=== PATIENT | female | born 1990 | race Caucasian/White ===

== ENCOUNTER 2018-05-30 04:18 | Emergency (ER) | payer OTHER, SELFPAY ==
[2018-05-30 04:23] VITALS: BP 116/69; PULSE 82; RESP 17; TEMP 37; O2SAT 100
[2018-05-30 04:31] VITALS: BP 116/69; PULSE 82; RESP 17; TEMP 37; O2SAT 100; BMI 27.3
--- NOTE | 2018-05-30 05:41 | ED_ITS ---
HPI - Pediatric GI General Chief Complaint: Abdominal Pain Stated Complaint: Constipation/Hard Stools Time Seen by Provider: 05/30/18 05:27 Source: patient Mode of arrival: ambulatory Limitations: no limitations History of Present Illness HPI narrative: The patient describes constipation for 4+ days. She normally has a bowel movement daily. She is having rectal pain and pressure when she tries to go. She has also had a little bit of bleeding when she tries to have a bowel movement. She has lower abdominal pain in conjunction with the rectal pain when trying to defecate. She is able to eat. There has been no nausea or vomiting. She denies dysuria. She is on control pills and is not . She has no fever. Related Data Allergies Allergy/AdvReac Type Severity Reaction Status Date / Time amoxicillin Allergy Hives Verified 05/30/18 04:38 Pediatric Review of Systems All systems ED: reviewed and negative except as stated Constitutional: Denies fever and chills Cardiovascular: Denies chest pain Respiratory: Denies cough and dyspnea Gastrointestinal: Reports abdominal pain, constipation and other (Bright red blood per rectum); Denies nausea and vomiting Genitourinary: Denies dysuria and vaginal bleeding Musculoskeletal: Denies back pain Integumentary: Denies rash PFSH Medical History No significant medical problems (Acute) No significant past surgical history (Acute) Social History Smoking Status: Never smoker Pediatric Exam Initial Vital Signs Initial Vital Signs: Vital Signs Temperature 98.6 F 05/30/18 04:23 Pulse Rate 82 05/30/18 04:23 Respiratory Rate 17 05/30/18 04:23 Blood Pressure 116/69 05/30/18 04:23 Pulse Oximetry 100 05/30/18 04:23 General Limitations: no limitations General appearance: well-appearing, well-hydrated and well-nourished Chest Chest inspection: Present normal inspection and symmetric chest wall rise Respiratory Respiratory exam: Present normal lung sounds bilaterally Cardiovascular Cardiovascular exam: Present regular rate, normal rhythm, normal heart sounds, + S1 and +S2; Absent rubs, gallop and clicks Abdominal Exam Abdominal exam: Present soft and normal bowel sounds; Absent distention, tenderness, guarding and mass Rectal Exam Rectal exam: Present normal rectal tone and tenderness (She has a small anal fissure. She has a moderate amount of stool in rectum, she is not impacted.); Absent hemorrhoids Course Course Narrative: The patient had little result with the Fleet's enema. She is feeling reasonably well. She will be discharged with magnesium citrate. Orders Ordered: Discontinued Medications Magnesium Citrate (Magnesium Citrate) 300 ml PO NOW ONE Stop: 05/30/18 07:00 Last Admin: 05/30/18 07:11 Dose: 300 ml Non-Formulary Medication (Fleets) 1 applicator [place] NOW ONE Stop: 05/30/18 05:38 Last Admin: 05/30/18 05:45 Dose: 1 applicator Vital Signs - 8 hr 05/30/18 04:23 05/30/18 04:31 05/30/18 06:48 Temperature 98.6 F 98.6 F Pulse Rate 82 82 84 Respiratory Rate 17 17 12 Blood Pressure 116/69 Blood Pressure [Left Arm] 116/69 102/71 Pulse Oximetry 100 100 100 Discharge Plan Departure Patient Disposition: Home Clinical Impression: Constipation Activity Restrictions/Additional Instructions: Drink the magnesium citrate after returning home. Walk as we discussed to help the magnesium citrate move through your system. You may drink water with a magnesium citrate. For future reference, try Milk of Magnesia 2 tablespoons every 4 hours as needed. Return to the ER as needed. Stand Alone Forms: Work Release Note
[2018-05-30] MEDS: [UNRECOGNIZED DRUG - OTHER] 1 EACH PR (05:45)
--- NOTE | 2018-05-30 05:51 | PC.NURSE ---
Stand by assist for Dr Rowell during rectal exam. Pt tolerated well. Fleets enema given via arevalo tube, pt instructed to hold it as long as she can before going to bathroom. Call light given. Pt tolerated well. Will ananth for effect.
[2018-05-30 06:48] VITALS: BP 102/71; PULSE 84; RESP 12; O2SAT 100
[2018-05-30] MEDS: MAGNESIUM CITRATE 300 ML SOLUTION PO (07:11)
== END 2018-05-30 07:18 | disposition home or self-care (01) ==
PROVIDERS: Emergency Provider Emergency Medicine
DX: K59.00 Constipation, unspecified (principal)
CPT/HCPCS: 99283

== ENCOUNTER 2019-10-13 20:36 | Emergency (ER) | payer OTHER, SELFPAY ==
--- NOTE | 2019-10-13 20:41 | ED.GENADULT ---
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 She states that the symptoms started approximately 2 days ago. They worsen since then. She states that she has a rash both on the inside and the outside of her labia. She has never had a rash like this in the past. The rash is tender to touch. It is not itching. It does hurt worse when she urinates. She does not feel that it gray when she urinates but that it does the rash that causes her problems. No bowel changes. No vomiting. No other rashes anywhere else on her body. She did try some [id number] yeast treatments for her symptoms prior to arrival without any improvement. She has 1 sexual partner. 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 Does have a prior history of gonorrhea but this was many years ago and was treated for it. Has never been before. Related Data Previous Rx's Medication Instructions Recorded acyclovir 400 mg PO TID 10 Days #30 tab 10/13/19 lidocaine HCl 1 applictn TOP BID-QID PRN #30 ml 10/13/19 Allergies Allergy/AdvReac Type Severity Reaction Status Date / Time amoxicillin Allergy Hives Verified 05/30/18 04:38 Review of Systems Constitutional Constitutional: Denies fever(s) Cardiovascular Cardiovascular: Denies chest pain and Denies dyspnea Respiratory Respiratory: Denies dyspnea Gastrointestinal Gastrointestinal: Denies abdominal pain, Denies nausea and Denies vomiting Genitourinary Genitourinary: Reports dysuria, Reports pelvic pain and Reports vaginal discharge Musculoskeletal Musculoskeletal: Denies myalgias and Denies arthralgias Integumentary/Breasts Skin/Breast: Reports rash Neurologic Neurologic: Denies behavioral changes Psychiatric Psychiatric: Denies behavioral changes Hematologic/Lymphatic Hematologic/Lymphatic: Denies easy bleeding and Denies easy bruising Patient History Medical History No significant medical problems (Acute) Social History Smoking Status: Never smoker Smoking Status: Never smoker alcohol intake frequency: a few times a month Substance Use Type: does not use Exam Initial Vital Signs Initial Vital Signs: Vital Signs Temperature 98.7 F 10/13/19 20:48 Pulse Rate 78 10/13/19 20:48 Respiratory Rate 16 10/13/19 20:48 Blood Pressure 145/70 H 10/13/19 20:48 Pulse Oximetry 100 10/13/19 20:48 Const General: cooperative, comfortable and well developed HENMS Head: normal to inspection and normocephalic Resp Effort & Inspection: normal respiratory effort External Female Exam: erythema, externally tender, no external swelling and external lesions (Patient with herpes lesions located with internal and external around the v) Speculum Exam - Vagina: vaginal erythema, vaginal lesion and No vaginal bleeding Speculum Exam - Cervix: cervical lesion OB/External & Speculum: No vaginal bleeding Skin Other: Patient with rash consistent with a just a infection located both internally and externally around the vagina Extrem General: normal to inspection and capillary refill normal Psych Appearance: grossly normal and well kempt Course Orders Ordered: ED Orders 10/13/19 20:46 Chlamydia Gonorrhea PCR -URINE Stat Urine Culture Stat Urine Microscopic Stat 10/13/19 21:15 HSV Culture Typing Stat JENNIFER Prep Stat Wet Prep Tric BV Stephanie Stat Discontinued Medications Acyclovir (Zovirax) 400 mg PO NOW ONE Stop: 10/13/19 21:28 Last Admin: 10/13/19 22:06 Dose: 400 mg Documented by: MAYANK Lidocaine HCl (Xylocaine Jelly 2%) 1 applic TOP NOW ONE Stop: 10/13/19 21:32 Last Admin: 10/13/19 22:06 Dose: 1 applic Documented by: MAYANK Vital Signs Vital signs: Vital Signs - 8 hr 10/13/19 20:48 10/13/19 23:45 Temperature 98.7 F Pulse Rate 78 65 Respiratory Rate 16 15 Blood Pressure 145/70 H Blood Pressure [Left Arm] 115/62 Pulse Oximetry 100 100 Medical Decision Making Lab Data Lab results reviewed: Yes I reviewed the patient's lab results. Labs: Lab Results 10/13/19 10/13/19 Range/Units 20:46 20:46 Urine RBC 1-5/hpf (0-5/HPF) Urine WBC 10-30/hpf H (0-5/HPF) Ur Squamous Epith Cells 1-5 /hpf (0-5/HPF) Amorphous Sediment 1+ Urine Bacteria Few (2-10) H (None) Urine Mucus 1+ H (Negative) Ur Culture Indicated? Specimen cultured Ur Chlamydia DNA (PCR) Not detected N gonorrhoeae DNA (PCR) Not detected Point of Care Testing Test Results Negative Urine Dip Bedside Urine Glucose Negative Bedside Urine Bilirubin - Negative Bedside Urine Ketone - Negative Urine Specific [place] 1.025 Bedside Urine Occult Blood + Bedside Urine pH 6.0 Bedside Urine Protein +/- 15 Bedside Urine Urobilinogen - Negative Bedside Urine Nitrite - Negative Bedside Urine Leukocytes + 70 Esterase Point of care testing: Point of Care Testing Test Results Negative Urine Dip Bedside Urine Glucose Negative Bedside Urine Bilirubin - Negative Bedside Urine Ketone - Negative Urine Specific [place] 1.025 Bedside Urine Occult Blood + Bedside Urine pH 6.0 Bedside Urine Protein +/- 15 Bedside Urine Urobilinogen - Negative Bedside Urine Nitrite - Negative Bedside Urine Leukocytes + 70 Esterase MDM Narrative Medical decision making narrative: UA is negative, test is negative, JENNIFER wet prep for Trichomonas negative. GC and chlamydia negative. Patient's physical exam is consistent with HSV. Did obtain any just the culture to confirm however despite any potential results of this will go ahead and treat her for this type of infection. Had a long discussion with her regarding her symptoms. With her permission and with her at bedside had a discussion with him regarding his risks and what he should watch out for potentially return to the emergency department. He is not currently having any symptoms. Their last intercourse was Tuesday and she developed symptoms on so he potentially could have been exposed. He Expressed understanding of when to return. With regard to the patient she expressed understanding of our discussion. She was given a 1st dose of acyclovir here and will send home with a prescription. Also send home with lidocaine jelly. We discussed potential complications. We did discuss that this potentially could return at some point during her life and that the treatment she was given today was for this current outbreak. She expressed understanding of this. 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 Like we discussed recommend that you have no intercourse until your symptoms have resolved. Contact your primary provider for follow-up. Return to the emergency department for any new or worsening symptoms Prescriptions: New acyclovir 400 mg tablet 400 mg PO TID 10 Days Qty: 30 RF: 0 lidocaine HCl 2 % jelly 1 applictn TOP BID-QID PRN (Reason: pain) Qty: 30 RF: 0
[2019-10-13 20:48] VITALS: BP 145/70; PULSE 78; RESP 16; TEMP 37.1; O2SAT 100; BMI 24.3
[2019-10-13 21:07] LABS: Amorphous Sediment Urine 1+; Bacteria Urine Few (2-10); Culture Indicated Urine Specimen Cultured; Mucus Urine 1+ (Negative); RBC Urine 1-5/HPF (0-5/HPF); Squamous Epithelial Cell Urine 1-5 /HPF (0-5/HPF); WBC Urine 10-30/HPF (0-5/HPF)
[2019-10-13] MEDS: LIDOCAINE JELLY 2% 5 ML 1 APPLIC TOP (22:06)
[2019-10-13] MEDS: ACYCLOVIR 400 MG TABLET PO (22:06)
[2019-10-13 23:26] LABS: Urine N gonorrhoeae NOT DETECTED
[2019-10-13 23:27] LABS: Urine Chlamydia NOT DETECTED
[2019-10-13 23:45] VITALS: BP 115/62; PULSE 65; RESP 15; O2SAT 100
== END 2019-10-13 23:55 | disposition home or self-care (01) ==
PROVIDERS: Emergency Provider Emergency Medicine
DX: A60.04 Herpesviral vulvovaginitis (principal)
CPT/HCPCS: 81003; 81015; 81025; 87086; 87210; 87220; 87255; 87491; 87591; 99283; 99284